=== PATIENT | female | born 1970 | race Caucasian/White ===

== ENCOUNTER → 2017-02-11 | Outpatient (CLI) | payer BC ==
[~2017-02-11] MED LIST: LAMISIL AF113 GM TOP; PHENTERMINE
--- NOTE | ~2017-02-11 | MY11 ---
[facility] A Service of [facility] RADIOLOGY TEXT RESULTS PATIENT: GÉNESIS ERIC LOCATION: [facility] : 70 UNIT #: [id number] AGE: [address]: Jonny Soto MD SEX: F ORDER DR: [id number] [facility]. [place], [place] [address] [id number] O MR#: [id number] Acc #: [id number] NAME: GÉNESIS ERIC. : 1970 SEX: F STUDY DATE/TIME: 02/11/2017 7:58 UNIT: [facility] ROOM: STUDY DESCRIPTION: MY Mammogram Screening Dig Gian Attending Physician: Jonny Soto Jr., M.D. Referring Physician: Jonny Soto Jr., M.D. Ordering Physician: Jonny Soto Jr., M.D. Primary Care Physician: Jonny Soto Jr., M.D. MEDICAL IMAGING REPORT This report is preliminary unless electronic signature is present EXAM Bilateral digital screening mammogram with CAD, 02/11/2017. INDICATIONS Routine screening. No reported problems. No personal history of breast cancer. Family history positive in the patient's grandmother at 65. No surgeries. TECHNIQUE CC and MLO views of the breasts were obtained and reviewed with an approved CAD device. COMPARISONS 09/04/2015, 08/10/2015, 06/30/2014. FINDINGS Breast parenchyma is composed of heterogeneously dense breast tissue. The pattern is unchanged. There is no new dominant nodule or mass in either breast. No new suspicious cluster of microcalcifications. IMPRESSION 1. Benign screening mammogram. 1 year followup recommended. Patients over the age of 40 are entered into a reminder system with target due date for the next mammogram. A result letter will also be sent to the patient. BIRADS: 2 Benign finding. Dictated by... Jose Daniel Linares M.D. THIS IS AN ELECTRONICALLY VERIFIED REPORT [facility] A Service of [facility] RADIOLOGY TEXT RESULTS PATIENT: GÉNESIS ERIC LOCATION: [facility] : 70 UNIT #: [id number] AGE: [address]: Jonny Soto MD SEX: F ORDER DR: Jose Daniel Linares M.D. at 02/12/2017 5:35 PM KWAN/desirae TD: 02/11/2017 13:49 JOB #: [id number] MEDICAL IMAGING REPORT Page 1 of 1 COPY
== END | disposition home or self-care (01) ==
LOC: CWCC 07:44
DX: Z12.31 Encounter for screening mammogram for malignant neoplasm of breast (principal); Z80.3 Family history of malignant neoplasm of breast
CPT/HCPCS: G0202